=== PATIENT | male | born 1970 | race Hispanic/Latino ===

== ENCOUNTER 2018-03-09 01:19 | Emergency (ER) | payer BC ==
[~2018-03-09] VITALS: Ht 177.8 cm; Wt 90.7 kg
[2018-03-09] MEDS ORDERED: KETOROLAC TROMETHAMINE 30 MG/ML VIAL IV STA (01:42)
[2018-03-09 03:25] VITALS: BP 122/71
--- NOTE | 2018-03-09 21:09 | Operative Report ---
DATE OF PROCEDURE: PREOPERATIVE DIAGNOSIS: POSTOPERATIVE DIAGNOSIS: OPERATION PERFORMED: DETAILS OF PROCEDURE: NO DICTATION (00:05) Job#: [id number]
== END 2018-03-09 07:10 | disposition home or self-care (01) ==
LOC: FSED 01:19
DX: R07.89 Other chest pain (principal)
CPT/HCPCS: 99283; J1885